=== PATIENT | female | born 1965 | race Caucasian/White ===

== ENCOUNTER → 2016-08-26 | Outpatient (CLI) | payer BC ==
--- NOTE | 2016-08-27 08:09 | XR ---
EXAMINATION TYPE: XR shoulder complete LT DATE OF EXAM: 08/26/2016 1:59 PM CLINICAL HISTORY: pain COMPARISON: NONE TECHNIQUE: Three views of the left shoulder are obtained. FINDINGS: There is no acute fracture/dislocation evident. The acromioclavicular and glenohumeral azar int spaces appear mildly narrowed. The visualized ribs are intact and unremarkable. IMPRESSION: 1. There is no acute fracture or dislocation. ICD 10 NO FRACTURE, INITIAL EVALUATION
== END | disposition home or self-care (01) ==
LOC: RADXRYALE 12:28
PROVIDERS: ATTEND Internal Medicine
DX: M25.512 Pain in left shoulder (principal)

== ENCOUNTER 2016-09-29 14:17 | Emergency (ER) | payer BC ==
[2016-09-29 14:22] VITALS: BP 129/89; PULSE 84; RESP 16; TEMP 97.7
[2016-09-29] MEDS ORDERED: HYDROcodone/APAP 5-325MG 1 EACH TAB PO STA (14:36)
--- NOTE | 2016-09-29 14:40 | ED ---
Upper Extremity HPI - General Chief Complaint: Extremity Injury, Upper Stated Complaint: Shouder Pain Time Seen by Provider: 09/29/16 14:24 Source: patient Mode of arrival: ambulatory Limitations: no limitations - History of Present Illness Initial Comments: Patient is a 51-year-old female presenting to the emergency department with complaints of left shoulder pain for approximately 6 months. Patient states she recently saw Dr. Dallas [facility] who recommended that patient undergo an MRI. Patient states she can't afford to have it done. Patient states that over the last 2 days she's had increased pain and she just can't take it anymore. Patient states that pain is exacerbated movement, pain is located primarily superior to the deltoid muscle. Patient states she is afraid to take any pain medications secondary to her having a history of a heart attack. Patient is currently refusing any imaging. No history of recent fevers, chills, nausea, vomiting, shortness of breath, chest pain, or abdominal pain. Patient denies numbness or tingling. Patient denies any recent injury or trauma. Handedness: right Severity scale (1-10): 6 Improves With: immobilization Worsens With: movement of extremity Treatments Prior to Arrival: other (None) - Related Data Home Medications Medication Instructions Recorded Confirmed Aspirin EC [Ecotrin Low Dose] 81 mg PO DAILY 01/06/16 01/06/16 Budesonide/Formoterol Fumarate 1 - 2 puff INHALATION RT-BID PRN 01/06/16 [Symbicort 160-4.5 Mcg Inhaler] Carvedilol [Coreg] 6.25 mg PO BID 01/06/16 01/06/16 Clopidogrel [Plavix] 75 mg PO DAILY 01/06/16 01/06/16 LORazepam [Lorazepam] 0.5 mg PO DAILY PRN 01/06/16 01/06/16 Nitroglycerin Sl Tabs [Nitrostat] 0.4 mg SUBLINGUAL Q5M PRN 01/06/16 01/06/16 Previous Rx's Medication Instructions Recorded Atorvastatin [Lipitor] 80 mg PO HS #90 tab 12/30/14 Furosemide [Lasix] 20 mg PO DAILY #90 tab 12/30/14 Lisinopril [Zestril] 2.5 mg PO BID #30 tab 12/31/14 HYDROcodone/APAP 5-325MG [Richmond 1 tab PO Q6H PRN #12 tab 09/29/16 5-325] Allergies Allergy/AdvReac Type Severity Reaction Status Date / Time No Known Allergies Allergy Verified 09/29/16 14:22 Review of Systems ROS Statement: Those systems with pertinent positive or pertinent negative responses have been documented in the HPI. ROS Other: All systems not noted in ROS Statement are negative. Past Medical History Past Medical History: Hyperlipidemia, Hypertension, Myocardial Infarction ([place]) Additional Past Medical History / Comment(s): Heart Murmur, V-FIB History of Any Multi-Drug Resistant Organisms: None Reported Past Surgical History: Heart Catheterization With Stent, Tonsillectomy, Tubal Ligation Additional Past Surgical History / Comment(s): . Past Anesthesia/Blood Transfusion Reactions: No Reported Reaction Additional Past Anesthesia/Blood Transfusion Reaction / Comment(s): Comes out of anesthesia quickly Past Psychological History: Anxiety, Depression Smoking Status: Current every day smoker Past Alcohol Use History: Daily Past Drug Use History: Unable to Obtain - Past Family History Mother Family Medical History: Diabetes Mellitus, Myocardial Infarction ([place]) Father Family Medical History: Diabetes Mellitus General Exam Limitations: no limitations General appearance: alert, in no apparent distress Head exam: Present: atraumatic, normocephalic, normal inspection Eye exam: Present: normal appearance, PERRL. Absent: scleral icterus, conjunctival injection, periorbital swelling, periorbital tenderness ENT exam: Present: normal exam, mucous membranes moist, normal external ear exam Neck exam: Present: normal inspection, full ROM. Absent: tenderness, meningismus, lymphadenopathy Respiratory exam: Present: normal lung sounds bilaterally. Absent: respiratory distress, wheezes, rales, rhonchi, stridor Cardiovascular Exam: Present: regular rate, normal rhythm, normal heart sounds GI/Abdominal exam: Present: soft, normal bowel sounds. Absent: distended, tenderness Left Shoulder Exam: Present: tenderness (Tenderness over the glenoid fossa.). Absent : full ROM (Patient able to abduct, adduct, flex, and extend left arm about 30. ), swelling, deformity, tenderness over AC joint Upper Arm exam: Present: normal inspection. Absent: tenderness, swelling Elbow exam: Present: normal inspection, full ROM. Absent: tenderness, swelling Forearm Wrist exam: Present: normal inspection, full ROM. Absent: tenderness, swelling Hand Wrist exam: Present: normal inspection, full ROM. Absent: tenderness, swelling Neuro motor exam: Present: wrist extension intact, thumb opposition intact, thumb IP flexion intact, thumb adduction intact, fingers 2-5 abduction intact Neurosensory exam: Present: 2-point discrimination, radial nerve intact, ulnar nerve intact, median nerve intact Vascular: Present: normal capillary refill, radial pulse, brachial pulse, ulnar pulse. Absent: vascular compromise Back exam: Present: normal inspection, full ROM. Absent: tenderness Neurological exam: Present: alert, oriented X3, normal gait, other (No focal deficits noted) Psychiatric exam: Present: normal affect, normal mood Skin exam: Present: warm, dry, intact, normal color Course Vital Signs 09/29/16 14:20 Temperature 97.7 F Pulse Rate 84 Respiratory 16 Rate Blood Pressure 129/89 O2 Sat by Pulse 97 Oximetry Medical Decision Making - Medical Decision Making Left shoulder pain over the glenoid fossa joint, chronic. Patient declined x- ray at this time. Patient given prescription for short course of pain medicine and instructed to follow-up with primary care physician and orthopedic service. Patient encouraged to get MRI done as previously directed. Patient agrees with treatment plan. Discharge instructions and return parameters reviewed. Disposition Clinical Impression: Chronic shoulder pain Disposition: HOME SELF-CARE Condition: Good Instructions: Shoulder Pain (ED) Additional Instructions: Continue Richmond one pill every 4-6 hours as needed for moderate to severe pain. Avoid alcohol or operating machinery while taking the pain medicine. Please follow-up with primary care physician as directed. Please follow-up with orthopedic service with new or worsening pain. Please return to the emergency department with any new or worsening symptoms. Prescriptions: HYDROcodone/APAP 5-325MG [Rich[place] 5-325] 1 tab PO Q6H PRN #12 tab PRN Reason: Pain Referrals: Sydney Caro MD [Primary Care Provider] - 1-2 days Dallas Jean MD [STAFF PHYSICIAN] - 1-2 days Time of Disposition: 14:41
== END 2016-09-29 15:15 | disposition home or self-care (01) ==
LOC: EC 14:17
DX: G89.29 Other chronic pain (principal); M25.512 Pain in left shoulder; I10 Essential (primary) hypertension; I25.2 Old myocardial infarction; F17.200 Nicotine dependence, unspecified, uncomplicated; Z79.02 Long term (current) use of antithrombotics/antiplatelets; Z79.82 Long term (current) use of aspirin; Z95.5 Presence of coronary angioplasty implant and graft
CPT/HCPCS: 99283

== ENCOUNTER 2017-03-21 20:16 | Emergency (ER) | payer BC ==
[2017-03-21 20:21] VITALS: RESP 18
[2017-03-21] MEDS ORDERED: KETOROLAC 30 MG/ML 1 ML VIAL IVP STA (20:38)
[2017-03-21] MEDS ORDERED: ASPIRIN 81 MG PO STA (20:38)
--- NOTE | 2017-03-21 20:42 | ED ---
Chest Pain HPI - General Chief Complaint: Chest Pain Stated Complaint: chest pain Time Seen by Provider: 03/21/17 20:28 Source: patient, RN notes reviewed Mode of arrival: ambulatory Limitations: no limitations - History of Present Illness Initial Comments: This is a 52-year-old female history of heart disease who is currently a smoker also history of COPD who states she had the onset about 8 PM yesterday evening of midsternal lower sternal chest pain. Feels like some a squeezing in its worse is 2-3/10 in severity currently is 0 a does get worse with deep breathing. She also states she's had a cough with some intermittent yellow phlegm sometimes clear phlegm she had hot flashes no chills or sweats. She does not feel short of breath. She states she's been under some stress lately she believes she may have gotten wrong prescription but it was corrected. No other complaints at this time MD Complaint: chest pain - Related Data Home Medications Medication Instructions Recorded Confirmed Aspirin EC [Ecotrin Low Dose] 81 mg PO DAILY 01/06/16 03/21/17 Carvedilol [Coreg] 6.25 mg PO BID 01/06/16 03/21/17 Clopidogrel [Plavix] 75 mg PO DAILY 01/06/16 03/21/17 Gemfibrozil [Lopid] 600 mg PO DAILY 03/21/17 03/21/17 metFORMIN HCL 1,000 mg PO BID 03/21/17 03/21/17 Previous Rx's Medication Instructions Recorded Atorvastatin [Lipitor] 80 mg PO HS #90 tab 12/30/14 Furosemide [Lasix] 20 mg PO DAILY #90 tab 12/30/14 Lisinopril [Zestril] 2.5 mg PO BID #30 tab 12/31/14 Ibuprofen [Motrin] 600 mg PO Q6HR PRN #20 tab 03/21/17 Allergies Allergy/AdvReac Type Severity Reaction Status Date / Time No Known Allergies Allergy Verified 03/21/17 20:44 Review of Systems ROS Statement: Those systems with pertinent positive or pertinent negative responses have been documented in the HPI. ROS Other: All systems not noted in ROS Statement are negative. EKG Findings - EKG Results: EKG: interpreted by RYAN, sinus rhythm (Sinus rhythm rate is 68. Interval 154 QRS 84 QT since QTC of 390/423 old septal changes. No current acute ST elevation or depressions.) Past Medical History Past Medical History: Hyperlipidemia, Hypertension, Myocardial Infarction ([place]) Additional Past Medical History / Comment(s): Heart Murmur, V-FIB History of Any Multi-Drug Resistant Organisms: None Reported Past Surgical History: Heart Catheterization With Stent, Tonsillectomy, Tubal Ligation Additional Past Surgical History / Comment(s): . Past Anesthesia/Blood Transfusion Reactions: No Reported Reaction Additional Past Anesthesia/Blood Transfusion Reaction / Comment(s): Comes out of anesthesia quickly Past Psychological History: Anxiety, Depression Smoking Status: Current every day smoker Past Alcohol Use History: Daily Past Drug Use History: None Reported - Past Family History Mother Family Medical History: Diabetes Mellitus, Myocardial Infarction ([place]) Father Family Medical History: Diabetes Mellitus General Exam - General Exam Comments Initial Comments: This is a well-developed well-nourished awake alert oriented x 3 female Limitations: no limitations General appearance: alert, anxious Head exam: Present: atraumatic, normocephalic, normal inspection Eye exam: Present: normal appearance, PERRL, EOMI. Absent: scleral icterus, conjunctival injection, periorbital swelling ENT exam: Present: normal exam, mucous membranes moist Neck exam: Present: normal inspection. Absent: tenderness, meningismus, lymphadenopathy Respiratory exam: Present: normal lung sounds bilaterally. Absent: respiratory distress, wheezes, rales, rhonchi, stridor Cardiovascular Exam: Present: regular rate, normal rhythm, normal heart sounds. Absent: systolic murmur, diastolic murmur, rubs, gallop, clicks GI/Abdominal exam: Present: soft, normal bowel sounds. Absent: distended, tenderness, guarding, rebound, rigid Extremities exam: Present: normal inspection, full ROM, normal capillary refill. Absent: tenderness, pedal edema, joint swelling, calf tenderness Back exam: Present: normal inspection Neurological exam: Present: alert, oriented X3, CN II-XII intact Psychiatric exam: Present: normal affect, normal mood Skin exam: Present: warm, dry, intact, normal color. Absent: rash Course Vital Signs 03/21/17 03/21/17 20:18 20:57 Temperature 97.5 F L Pulse Rate 77 65 Respiratory 18 18 Rate Blood Pressure 146/75 132/74 O2 Sat by Pulse 98 99 Oximetry - Reevaluation(s) Reevaluation #1: 03/21/17 22:52 I did discuss the risks of smoking and the benefits of smoking cessation with the patient. We went over the multiple diseases it could be caused by smoking. The Conversation lasting 3.1 minutes. Chest Pain MDM - MDM I did discuss the findings with the patient and her daughter was present. Thus far the workup was negative for acute findings. CAT scan is negative for PE or acute focal disease. Patient did get relief from her discomfort she will be discharged she was cautioned about smoking she'll be placed on anti- inflammatories. She is a follow-up with her doctor return when necessary Disposition Clinical Impression: Chest wall syndrome, Costalchondritis, Smoking Disposition: HOME SELF-CARE Condition: Good Instructions: Costochondritis (ED), Chest Pain (ED), How to Stop Smoking (ED) Prescriptions: Ibuprofen [Motrin] 600 mg PO Q6HR PRN #20 tab PRN Reason: Pain Referrals: Sydney Caro MD [Primary Care Provider] - 1-2 days
[2017-03-21 20:52] LABS: Basophils # (A) 0.1 k/uL (0-0.2); Basophils % (A) 1 %; CH 32.7; Eosinophils # (A) 0.3 k/uL (0-0.7); Eosinophils % (A) 3 %; HCT 47.4 % (34.0-46.0); HDW 2.34; HGB 15.9 gm/dL (11.4-16.0); Luc % (Auto) 3; Lymphocytes # (A) 2.5 k/uL (1.0-4.8); Lymphocytes % (A) 25 %; MCH 31.5 pg (25.0-35.0); MCHC 33.6 g/dL (31.0-37.0); MCV 93.8 fL (80.0-100.0); Mean Platelet Volume 7.3; Monocytes # (A) 0.6 k/uL (0-1.0); Monocytes % (A) 6 %; Neutrophils # (A) 6.1 k/uL (1.3-7.7); Neutrophils % (A) 62 %; RBC 5.05 m/uL (3.80-5.40); RDW 12.8 % (11.5-15.5); WBC 9.9 k/uL (3.8-10.6); WBC (Perox) 10.17
--- NOTE | 2017-03-21 20:55 | XR ---
EXAMINATION TYPE: XR chest 2V DATE OF EXAM: 03/21/2017 COMPARISON: 01/06/2016 HISTORY: Chest pain TECHNIQUE: Frontal and lateral views of the chest are obtained. FINDINGS: Heart and mediastinum are normal. Lungs are clear of consolidation. There is no pleural ef fusion. There are chest leads. Bony thorax appears intact. IMPRESSION: Normal chest. No change.
[2017-03-21 21:05] LABS: ALT 34 U/L (9-52); AST 28 U/L (14-36); Alkaline Phosphatase 71 U/L (38-126); Amylase 57 U/L (30-110); Anion Gap 12 mmol/L; Blood Urea Nitrogen 12 mg/dL (7-17); Calcium 10.1 mg/dL (8.4-10.2); Carbon Dioxide 26 mmol/L (22-30); Chloride 102 mmol/L (98-107); Glucose 91 mg/dL (74-99); Magnesium 2.1 mg/dL (1.6-2.3); Non-African American GFR(MDRD) >60 (>60 ml/min/1.73 sqM); Sodium 140 mmol/L (137-145); Total Bilirubin 0.5 mg/dL (0.2-1.3)
[2017-03-21 21:07] LABS: Creatine Kinase 59 U/L (30-135)
[2017-03-21 21:10] LABS: Partial Thromboplastin Time 23.6 sec (22.0-30.0); Prothrombin Time 9.9 sec (9.0-12.0)
[2017-03-21 21:19] LABS: Creatine Kinase MB 1.4 ng/mL (0.0-2.4); Troponin I <0.012 ng/mL (0.000-0.034)
[2017-03-21] MEDS ORDERED: RX INFO: IV CONTRAST WAS GIVEN 1 EACH MISC MISCELLANE PRN (21:47)
--- NOTE | 2017-03-21 22:26 | CT ---
EXAMINATION TYPE: CT angio chest DATE OF EXAM: 03/21/2017 10:16 PM COMPARISON: NONE HISTORY: Shortness of breath and chest pain CT DLP: 464 mGycm Automated exposure control for dose reduction was used. CONTRAST: CTA scan of the thorax is performed with IV Contrast, patient injected with 100 mL of Omnipaque 350, pulmonary embolism protocol. There are 3-D post processed images.. FINDINGS: There is mild reticular interstitial infiltrate at the posterior lung bases. There is no evidence of pulmonary mass. There is no pneumothorax or pleural effusion. Heart size is normal. There is no pericardial effusion. I see no filling defects in the pulmonary art eries. There is no mediastinal adenopathy. There are no hilar masses. There is no evidence of aortic aneurysm or dissection. Bony structures are intact. IMPRESSION: MILD RETICULAR DENSITY AT THE LUNG BASES CONSISTENT WITH SUBSEGMENTAL ATELECTASIS. NO EVIDENCE OF PUL MONARY EMBOLISM.
[2017-03-21 23:27] VITALS: BP 111/73; PULSE 55; TEMP 98
== END 2017-03-21 23:25 | disposition home or self-care (01) ==
LOC: EC 20:16
DX: M94.0 Chondrocostal junction syndrome [Tietze] (principal); E78.5 Hyperlipidemia, unspecified; I10 Essential (primary) hypertension; I49.01 Ventricular fibrillation; I25.2 Old myocardial infarction; F17.200 Nicotine dependence, unspecified, uncomplicated; Z95.5 Presence of coronary angioplasty implant and graft; Z79.82 Long term (current) use of aspirin; Z79.84 Long term (current) use of oral hypoglycemic drugs; Z79.01 Long term (current) use of anticoagulants; Z79.899 Other long term (current) drug therapy
CPT/HCPCS: 99285; 96374; 36415; 93005; 85379; 83880; 80053; 82150; 82550; 82553; 83690; 83735; 84484; 85025; 85610; 85730; 71020; 71275; Q9967; J1885

== ENCOUNTER 2017-10-25 18:21 | Emergency (ER) | payer BC, OTHER ==
[2017-10-25 18:50] VITALS: BP 113/55; PULSE 74; RESP 16; TEMP 97.8
[2017-10-25] MEDS ORDERED: DIPH,PERTUS(ACELL)TETVAC-LF 0.5 ML VIAL IM ONE (19:23)
--- NOTE | 2017-10-25 19:30 | ED ---
General Adult HPI - General Chief complaint: Animal Bite Stated complaint: DOG BITE LEFT ARM Time Seen by Provider: 10/25/17 19:19 Source: patient, RN notes reviewed Mode of arrival: ambulatory Limitations: no limitations - History of Present Illness Initial comments: Patient 52-year-old female presenting to the emergency room today with chief complaint of dog bite to the left elbow that occurred just prior to arrival. She states it was her daughter's dog. She states that she was going to let off for work and the dog became upset and bit her on the left elbow. Patient is unsure of her tetanus status. She states she does have full range of motion. She denies any other complaints or symptoms at this time. Patient denies any recent fever, chills, shortness of breath, chest pain, back pain, abdominal pain , nausea or vomiting, numbness or tingling, headaches or visual changes, or any other complaints. - Related Data Home Medications Medication Instructions Recorded Confirmed Aspirin EC [Ecotrin Low Dose] 81 mg PO DAILY 01/06/16 03/21/17 Carvedilol [Coreg] 6.25 mg PO BID 01/06/16 03/21/17 Clopidogrel [Plavix] 75 mg PO DAILY 01/06/16 03/21/17 Gemfibrozil [Lopid] 600 mg PO DAILY 03/21/17 03/21/17 metFORMIN HCL 1,000 mg PO BID 03/21/17 03/21/17 Previous Rx's Medication Instructions Recorded Atorvastatin [Lipitor] 80 mg PO HS #90 tab 12/30/14 Furosemide [Lasix] 20 mg PO DAILY #90 tab 12/30/14 Lisinopril [Zestril] 2.5 mg PO BID #30 tab 12/31/14 Ibuprofen [Motrin] 600 mg PO Q6HR PRN #20 tab 03/21/17 Amoxicillin/Potassium Clav 1 each PO Q12HR #20 tab 10/25/17 [Augmentin 875-125 Tablet] Allergies Allergy/AdvReac Type Severity Reaction Status Date / Time No Known Allergies Allergy Verified 10/25/17 18:50 Review of Systems ROS Statement: Those systems with pertinent positive or pertinent negative responses have been documented in the HPI. ROS Other: All systems not noted in ROS Statement are negative. Past Medical History Past Medical History: Hyperlipidemia, Hypertension, Myocardial Infarction ([place]) Additional Past Medical History / Comment(s): Heart Murmur, V-FIB History of Any Multi-Drug Resistant Organisms: None Reported Past Surgical History: Heart Catheterization With Stent, Tonsillectomy, Tubal Ligation Additional Past Surgical History / Comment(s): . Past Anesthesia/Blood Transfusion Reactions: No Reported Reaction Additional Past Anesthesia/Blood Transfusion Reaction / Comment(s): Comes out of anesthesia quickly Past Psychological History: Anxiety, Depression Smoking Status: Current every day smoker Past Alcohol Use History: Daily Past Drug Use History: None Reported - Past Family History Mother Family Medical History: Diabetes Mellitus, Myocardial Infarction ([place]) Father Family Medical History: Diabetes Mellitus General Exam - General Exam Comments Initial Comments: General: The patient is awake and alert, in no distress, and does not appear acutely ill. Neck: The neck is supple, there is no tenderness or JVD. Musculoskeletal: Moderate swelling to the medial aspect of the right elbow. Patient shows full range of motion with flexion and extension. Radial pulse 2+ . Strength is 5/5. Sensations intact. Neurological: A&O x 3. CN II-XII intact, There are no obvious motor or sensory deficits. Coordination appears grossly intact. Speech is normal. Skin: Patient does have puncture wound to the medial aspect measures approximately 1 cm with 2 small punctures to the posterior aspect measuring each approximately half centimeter in size. No active bleeding. Psychiatric: Normal mood and affect. Limitations: no limitations Course Vital Signs 10/25/17 18:48 Temperature 97.8 F Pulse Rate 74 Respiratory 16 Rate Blood Pressure 113/55 O2 Sat by Pulse 96 Oximetry Medical Decision Making - Medical Decision Making X-ray reviewed and is negative for any foreign bodies or fracture dislocation. Results were discussed with the patient. Patient tetanus updated here in the emergency room be started on antibiotics. Advised close follow-up for signs of infection Disposition Clinical Impression: Dog bite Disposition: HOME SELF-CARE Instructions: Animal Bite (ED) Additional Instructions: Please use medication as discussed. Please follow-up with family doctor in the next 2 days of symptoms have not improved. Please return to emergency room if the symptoms increase or worsen or for any other concerns. Prescriptions: Amoxicillin/Potassium Clav [Augmentin 875-125 Tablet] 1 each PO Q12HR #20 tab Is patient prescribed a controlled substance at d/c from ED?: No Referrals: Sydney Caro MD [Primary Care Provider] - 1-2 days Time of Disposition: 19:55
--- NOTE | 2017-10-25 19:51 | XR ---
EXAMINATION TYPE: XR elbow complete LT DATE OF EXAM: 10/25/2017 CLINICAL HISTORY: Dogbite and soft tissue swelling TECHNIQUE: Frontal, lateral and oblique images of the left elbow are obtained. COMPARISON: None FINDINGS: There is no acute fracture/dislocation evident in the left elbow. No abnormal fat pad sig ns are seen. There is extensive soft tissue swelling over the ventral and dorsal distal humerus seen medially. No cortical erosion or periosteal reaction. No suspicious radiopaque foreign body. IMPRESSION: Pronounced soft tissue swelling of the medial elbow also seen dorsally and ventrally over the distal humerus without is no acute fracture or dislocation in the left elbow. No cortical erosio n or periosteal reaction to suggest current osteomyelitis.
== END 2017-10-25 20:19 | disposition home or self-care (01) ==
LOC: EC 18:21
DX: S51.052A Open bite, left elbow, initial encounter (principal); E78.5 Hyperlipidemia, unspecified; I25.2 Old myocardial infarction; I10 Essential (primary) hypertension; I49.01 Ventricular fibrillation; F17.200 Nicotine dependence, unspecified, uncomplicated; Z95.5 Presence of coronary angioplasty implant and graft; Z79.82 Long term (current) use of aspirin; Z79.84 Long term (current) use of oral hypoglycemic drugs; Z79.02 Long term (current) use of antithrombotics/antiplatelets; Z79.899 Other long term (current) drug therapy; Z23 Encounter for immunization; W54.0XXA Bitten by dog, initial encounter
CPT/HCPCS: 90471; 90715; 99283

== ENCOUNTER → 2018-02-26 | Outpatient (CLI) | payer OTHER ==
--- NOTE | 2018-02-26 15:29 | MR ---
EXAMINATION TYPE: MR shoulder RT wo con DATE OF EXAM: 02/26/2018 COMPARISON: Outside right shoulder x-ray from 2 days ago. HISTORY: Pain in right shoulder per order. Pain since May 2017 with difficulty raising overhead TECHNIQUE: Multiplanar, multisequence imaging of the right shoulder is performed without contrast. FINDINGS: Rotator Cuff: Increased signal distal supraspinatus tendon is present. Tiny articular surface tear is identified paracoronal image 15 measuring 4 mm transversely . Infraspinatus tendon is intact. Subsca pularis tendon is intact. Rotator cuff muscle bulk is preserved. Acromioclavicular Joint: There is mild to moderate joint space loss and capsular hypertrophy with mil d spurring. Inferior fat plane is effaced. Distal acromion morphology is unremarkable. Glenohumeral Joint: There is small to moderate glenohumeral joint effusion. No significant spurring i s seen. Labrum: The labrum appears grossly intact given limitation of non-arthrogram study. Biceps Tendon: The long head of biceps is in normal location within bicipital groove. Bone marrow signal: Heterogeneity consistent with red marrow reconversion is present. Other: No additional significant abnormality is appreciated. IMPRESSION: Tendinosis and partial articular surface tear of distal supraspinatus tendon.
== END | disposition home or self-care (01) ==
LOC: RADMRIMAIN 10:57
PROVIDERS: ATTEND Orthopaedic Surgery
DX: M75.101 Unspecified rotator cuff tear or rupture of right shoulder, not specified as traumatic (principal); M75.91 Shoulder lesion, unspecified, right shoulder

== ENCOUNTER → 2018-09-08 | Outpatient (CLI) | payer OTHER ==
--- NOTE | 2018-09-08 13:33 | XR ---
EXAM TYPE: LUMBAR SPINE X RAY SERIES COMPARISON: NONE HISTORY: Pain TECHNIQUE: 4 views are submitted. FINDINGS: Alignment is anatomic. The pedicles are intact. The transverse processes are intact. There is no s pondylolysis or spondylolisthesis. Multilevel hypertrophic changes are seen with facet arthropathy a t L5-S1. No compression deformities. IMPRESSION: 1. Multilevel hypertrophic changes. Correlate with MRI as clinically warranted. Facet arthropathy L5- S1..
== END | disposition home or self-care (01) ==
LOC: RADXRMAIN 11:04
PROVIDERS: ATTEND Family Medicine
DX: M46.97 Unspecified inflammatory spondylopathy, lumbosacral region (principal)
CPT/HCPCS: 72110

== ENCOUNTER → 2018-12-28 | Outpatient (CLI) | payer OTHER ==
--- NOTE | 2018-12-29 10:26 | MM ---
Reason for exam: screening (asymptomatic). Last mammogram was performed 3 years and 3 months ago. History: Patient is postmenopausal. Benign US biopsy breast VAD RT of the right breast, September 19, 2015. Physical Findings: A clinical breast exam by your physician is recommended on an annual basis and results should be correlated with mammographic findings. MG Screening Mammo w CAD Bilateral CC and MLO view(s) were taken. Prior study comparison: September 19, 2015, right breast MG diagnostic mammo RT wo CAD. The breast tissue is heterogeneously dense. This may lower the sensitivity of mammography. There is a stable right upper outer quadrant mass at middle depth. Benign appearing calcifications in the right breast. No suspicious abnormality. Right biopsy marker noted. No significant changes when compared with prior studies. ASSESSMENT: Benign, BI-RAD 2 RECOMMENDATION: Routine screening mammogram of both breasts in 1 year.
== END | disposition home or self-care (01) ==
LOC: RADMAMWWP 14:32
PROVIDERS: ATTEND Internal Medicine
DX: Z12.31 Encounter for screening mammogram for malignant neoplasm of breast (principal)
CPT/HCPCS: 77067

== ENCOUNTER 2023-09-16 16:21 | Emergency (ER) | payer OTHER ==
[2023-09-16 16:36] VITALS: TEMP 98.2
--- NOTE | 2023-09-16 16:57 | ED ---
Dizziness HPI - General Chief Complaint: Syncope Stated Complaint: Syncope Time Seen by Provider: 09/16/23 16:29 Source: patient, EMS, RN notes reviewed, old records reviewed Mode of arrival: EMS Limitations: no limitations - History of Present Illness Initial Comments: This is a 58-year-old female with history of syncope. Patient states she was at home when she had a syncopal event she did does believe she hit her face on a dog dish. Patient is concerned over possible causes of syncope here in the emergency department she has been passing out more than usual lately possible blood sugar issues. Patient has no headache chest pain shortness of breath abdominal pain currently but is on Plavix and did hit her head. Patient again has prior history of syncope MD Complaint: dizziness, lightheadedness, other (Positive syncopal event) -: hour(s) Timing: sudden onset, gradual onset Description: lightheadedness, other (No external signs of trauma) History of Same: Yes History of Trauma: Yes (No significant traumatic injury noted to the face or neck) Severity: moderate Worsens With: nothing Associated Symptoms: shortness of breath, syncope, weakness - Related Data Home Medications Medication Instructions Recorded Confirmed Aspirin EC [Ecotrin Low Dose] 81 mg PO DAILY@1200 01/06/16 09/16/23 carvediloL [Coreg] 6.25 mg PO BID@0000,1200 01/06/16 09/16/23 gemfibroziL [Lopid] 600 mg PO DAILY@1200 03/21/17 09/16/23 metFORMIN HCL [Glucophage] 1,000 mg PO DAILY@1200 03/21/17 09/16/23 lisinopriL [Zestril] 2.5 mg PO BID@0000,1200 05/11/18 09/16/23 Atorvastatin [Lipitor] 80 mg PO HS@0000 09/16/23 09/16/23 Furosemide [Lasix] 20 mg PO DAILY@1200 09/16/23 09/16/23 Allergies Allergy/AdvReac Type Severity Reaction Status Date / Time No Known Allergies Allergy Verified 09/16/23 17:27 Review of Systems ROS Statement: Those systems with pertinent positive or pertinent negative responses have been documented in the HPI. ROS Other: All systems not noted in ROS Statement are negative. Past Medical History Past Medical History: Hyperlipidemia, Hypertension, Myocardial Infarction (ND) Additional Past Medical History / Comment(s): Heart Murmur, V-FIB History of Any Multi-Drug Resistant Organisms: None Reported Past Surgical History: Heart Catheterization With Stent, Tonsillectomy, Tubal Ligation Additional Past Surgical History / Comment(s): . Past Anesthesia/Blood Transfusion Reactions: No Reported Reaction Additional Past Anesthesia/Blood Transfusion Reaction / Comment(s): Comes out of anesthesia quickly Past Psychological History: Anxiety, Depression Smoking Status: Current every day smoker Past Alcohol Use History: Daily Past Drug Use History: None Reported - Past Family History Mother Family Medical History: Diabetes Mellitus, Myocardial Infarction (ND) Father Family Medical History: Diabetes Mellitus General Exam Limitations: no limitations General appearance: alert, in no apparent distress, anxious Head exam: Present: atraumatic, normocephalic, normal inspection Eye exam: Present: normal appearance, PERRL, EOMI. Absent: scleral icterus, conjunctival injection, periorbital swelling ENT exam: Present: normal exam, mucous membranes moist Neck exam: Present: normal inspection. Absent: tenderness, meningismus, lymphadenopathy Respiratory exam: Present: normal lung sounds bilaterally. Absent: respiratory distress, wheezes, rales, rhonchi, stridor Cardiovascular Exam: Present: regular rate, normal rhythm, normal heart sounds. Absent: systolic murmur, diastolic murmur, rubs, gallop, clicks GI/Abdominal exam: Present: soft, normal bowel sounds. Absent: distended, tenderness, guarding, rebound, rigid Extremities exam: Present: normal inspection, full ROM, normal capillary refill. Absent: tenderness, pedal edema, joint swelling, calf tenderness Back exam: Present: normal inspection Neurological exam: Present: alert, oriented X3, CN II-XII intact Psychiatric exam: Present: normal affect, normal mood Skin exam: Present: warm, dry, intact, normal color. Absent: rash Course Vital Signs 09/16/23 09/16/23 09/16/23 16:28 18:53 21:02 Temperature 98.2 F Pulse Rate 79 94 80 Respiratory 18 18 18 Rate Blood Pressure 152/81 105/95 148/81 O2 Sat by Pulse 95 97 97 Oximetry 09/16/23 21:32 Temperature Pulse Rate Respiratory 16 Rate Blood Pressure O2 Sat by Pulse Oximetry - Reevaluation(s) Reevaluation #1: Medical records reviewed Reevaluation #2: Patient symptoms unchanged Reevaluation #3: Patient informed of results and questions answered Reevaluation #4: Was pt. sent in by a medical professional or institution (ARCHIE Campbell, [employer]AIGHTENER, urgent care, hospital, or group home...) When possible be specific @ -no Did you speak to anyone other than the patient for history (EMS, parent, family, police, friend...)? What history was obtained from this source @ -no Did you review nursing and triage notes (agree or disagree)? Why? @ -agree Are old charts reviewed (outside hosp., previous admission, EMS record, old EKG, old radiological studies, urgent care reports/EKG's, group home records)? Report findings @ -yes Differential Diagnosis (chest pain, altered mental status, abdominal pain women, abdominal pain men, vaginal bleeding, weakness, fever, dyspnea, syncope, headache, dizziness, GI bleed, back pain, seizure, CVA, palpatations, mental health, musculoskeletal)? @ -prior EKG interpreted by me (3pts min.). @ -yes X-rays interpreted by me (1pt min.). @ -no CT interpreted by me (1pt min.). @ -yes negative for acute disease U/S interpreted by me (1pt. min.). @ -no What testing was considered but not performed or refused? (CT, X-rays, U/S, labs)? Why? @ -none What meds were considered but not given or refused? Why? @ -none Did you discuss the management of the patient with other professionals (professionals i.e. ARCHIE Campbell, [employer] STRAIGHTENER, lab, RT, psych nurse, social media community manager, trial lawyer, teacher, investment officer, case management coordinator)? Give summary @ -no Was smoking cessation discussed for >3mins.? @ -no Was critical care preformed (if so, how long)? @ -no Were there social determinants of health that impacted care today? How? (Homelessness, low income, unemployed, alcoholism, drug addiction, transportation, low edu. Level, literacy, decrease access to med. care, fdc, r ehab)? @ -none Was there de-escalation of care discussed even if they declined (Discuss DNR or withdrawal of care, Hospice)? DNR status @ -no What co-morbidities impacted this encounter? (DM, HTN, Smoking, COPD, CAD, Cancer, CVA, ARF, Chemo, Hep., AIDS, mental health diagnosis, sleep apnea, morbid obesity)? @ -none Was patient admitted / discharged? Hospital course, mention meds given and route , prescriptions, significant lab abnormalities, going to OR and other pertinent info. @ - 58 female to ER with a syncopal event but no acute cause of syncope found here in the ER, patient has no complaints of headache chest pain shortness of breath abdominal pain has no other complaints or feelings. Patient can be discharged home Discharge Undiagnosed new problem with uncertain prognosis? @ -no Drug Therapy requiring intensive monitoring for toxicity (Heparin, Nitro, Insulin, Cardizem)? @ -no Were any procedures done? @ -no Diagnosis/symptom? @ -Syncope Acute, or Chronic, or Acute on Chronic? @ -Acute Uncomplicated (without systemic symptoms) or Complicated (systemic symptoms)? @ -Complicated Side effects of treatment? @ -no Exacerbation, Progression, or Severe Exacerbation? @ -exacerbation Poses a threat to life or bodily function? How? (Chest pain, USA, ND, pneumonia, PE, COPD, DKA, ARF, appy, cholecystitis, CVA, Diverticulitis, Homicidal, Suicidal, threat to staff... and all critical care pts) @ -yes with cause of syncope Reevaluation #5: Differential Dizziness: Benign paroxysmal positional Vertigo, Menieres disease, otitis media, acoustic neuroma, vertebrobasilar insufficiency, cerebellar stroke, encephalitis, hypovolemic, arrhythmia, coronary artery syndrome, anemia, this is not meant to be an all-inclusive list EKG Findings - EKG Comments: EKG Findings:: EKG is sinus 67 UT 160 QRS 88 QTc 407 - EKG Results: EKG: interpreted by [facility] Medical Decision Making - Medical Decision Making 58 female to ER with a syncopal event but no acute cause of syncope found here in the ER, patient has no complaints of headache chest pain shortness of breath abdominal pain has no other complaints or feelings. Patient can be discharged home - Lab Data Result diagrams: 09/16/23 17:05 09/16/23 17:05 Lab Results 09/16/23 09/16/23 09/16/23 Range/Units 17:05 17:05 17:05 WBC 6.8 (3.8-10.6) k/uL RBC 4.70 (3.80-5.40) m/uL Hgb 15.3 (11.4-16.0) gm/dL Hct 45.1 (34.0-46.0) % MCV 95.9 (80.0-100.0) fL MCH 32.5 (25.0-35.0) pg MCHC 33.9 (31.0-37.0) g/dL RDW 12.7 (11.5-15.5) % Plt Count 311 (150-450) k/uL MPV 7.4 Neutrophils % 62 % Lymphocytes % 23 % Monocytes % 8 % Eosinophils % 2 % Basophils % 1 % Neutrophils # 4.2 (1.3-7.7) k/uL Lymphocytes # 1.6 (1.0-4.8) k/uL Monocytes # 0.6 (0-1.0) k/uL Eosinophils # 0.1 (0-0.7) k/uL Basophils # 0.1 (0-0.2) k/uL PT 10.7 (10.0-12.5) sec INR 1.0 (<1.2) APTT 24.9 (22.0-30.0) sec D-Dimer 2.12 H (<0.60) mg/L FEU Sodium 131 L (137-145) mmol/L Potassium 4.3 (3.5-5.1) mmol/L Chloride 96 L (98-107) mmol/L Carbon Dioxide 26 (22-30) mmol/L Anion Gap 9 mmol/L BUN 7 (7-17) mg/dL Creatinine 0.52 (0.52-1.04) mg/dL Est GFR (CKD-EPI)AfAm >90 (>60 ml/min/1.73 sqM) Est GFR (CKD-EPI)NonAf >90 (>60 ml/min/1.73 sqM) Glucose 99 (74-99) mg/dL Plasma Lactic Acid Jose D (0.7-2.0) mmol/L Calcium 9.9 (8.4-10.2) mg/dL Phosphorus 4.2 (2.5-4.5) mg/dL Magnesium 1.7 (1.6-2.3) mg/dL Total Bilirubin 0.7 (0.2-1.3) mg/dL AST 30 (14-36) U/L ALT 29 (4-34) U/L Alkaline Phosphatase 67 (38-126) U/L Ammonia (<30) umol/L Troponin I (0.000-0.034) ng/mL NT-Pro-B Natriuret Pep 205 pg/mL Total Protein 7.3 (6.3-8.2) g/dL Albumin 4.9 (3.5-5.0) g/dL Urine Color Urine Appearance (Clear) Urine pH (5.0-8.0) Ur Specific [place] (1.001-1.035) Urine Protein (Negative) Urine Glucose (UA) (Negative) Urine Ketones (Negative) Urine Blood (Negative) Urine Nitrite (Negative) Urine Bilirubin (Negative) Urine Urobilinogen (<2.0) mg/dL Ur Leukocyte Esterase (Negative) Urine RBC (0-5) /hpf Urine WBC (0-5) /hpf Ur Squamous Epith Cells (0-4) /hpf Hyaline Casts (0-2) /lpf Urine Mucus (None) /hpf Serum Alcohol <10 mg/dL 09/16/23 09/16/23 09/16/23 Range/Units 17:05 17:05 17:05 WBC (3.8-10.6) k/uL RBC (3.80-5.40) m/uL Hgb (11.4-16.0) gm/dL Hct (34.0-46.0) % MCV (80.0-100.0) fL MCH (25.0-35.0) pg MCHC (31.0-37.0) g/dL RDW (11.5-15.5) % Plt Count (150-450) k/uL MPV Neutrophils % % Lymphocytes % % Monocytes % % Eosinophils % % Basophils % % Neutrophils # (1.3-7.7) k/uL Lymphocytes # (1.0-4.8) k/uL Monocytes # (0-1.0) k/uL Eosinophils # (0-0.7) k/uL Basophils # (0-0.2) k/uL PT (10.0-12.5) sec INR (<1.2) APTT (22.0-30.0) sec D-Dimer (<0.60) mg/L FEU Sodium (137-145) mmol/L Potassium (3.5-5.1) mmol/L Chloride (98-107) mmol/L Carbon Dioxide (22-30) mmol/L Anion Gap mmol/L BUN (7-17) mg/dL Creatinine (0.52-1.04) mg/dL Est GFR (CKD-EPI)AfAm (>60 ml/min/1.73 sqM) Est GFR (CKD-EPI)NonAf (>60 ml/min/1.73 sqM) Glucose (74-99) mg/dL Plasma Lactic Acid Jose D 1.4 (0.7-2.0) mmol/L Calcium (8.4-10.2) mg/dL Phosphorus (2.5-4.5) mg/dL Magnesium (1.6-2.3) mg/dL Total Bilirubin (0.2-1.3) mg/dL AST (14-36) U/L ALT (4-34) U/L Alkaline Phosphatase (38-126) U/L Ammonia <9 (<30) umol/L Troponin I <0.012 (0.000-0.034) ng/mL NT-Pro-B Natriuret Pep pg/mL Total Protein (6.3-8.2) g/dL Albumin (3.5-5.0) g/dL Urine Color Colorless Urine Appearance Clear (Clear) Urine pH 6.0 (5.0-8.0) Ur Specific [place] 1.006 (1.001-1.035) Urine Protein Negative (Negative) Urine Glucose (UA) Negative (Negative) Urine Ketones Negative (Negative) Urine Blood Negative (Negative) Urine Nitrite Negative (Negative) Urine Bilirubin Negative (Negative) Urine Urobilinogen <2.0 (<2.0) mg/dL Ur Leukocyte Esterase Moderate H (Negative) Urine RBC 3 (0-5) /hpf Urine WBC 1 (0-5) /hpf Ur Squamous Epith Cells 1 (0-4) /hpf Hyaline Casts 1 (0-2) /lpf Urine Mucus Rare H (None) /hpf Serum Alcohol mg/dL - Radiology Data Radiology results: report reviewed (CTA chest negative for acute disease), image reviewed Disposition Clinical Impression: Atypical syncope, Vasovagal syncope Disposition: HOME SELF-CARE Condition: Good Instructions (If sedation given, give patient instructions): Syncope (ED) Is patient prescribed a controlled substance at d/c from ED?: No Referrals: Sydney Caro MD [Primary Care Provider] - 1-2 days
[2023-09-16] MEDS: SODIUM CHLORIDE 0.9% 1,000 ML IV STA (17:11)
[2023-09-16] MEDS: SODIUM CHLORIDE 0.9% 500 ML 500 ML IV STA (17:12)
[2023-09-16 17:20] LABS: Basophils # (A) 0.1 k/uL (0-0.2); Basophils % (A) 1 %; Eosinophils # (A) 0.1 k/uL (0-0.7); Eosinophils % (A) 2 %; HCT 45.1 % (34.0-46.0); HGB 15.3 gm/dL (11.4-16.0); Lymphocytes # (A) 1.6 k/uL (1.0-4.8); Lymphocytes % (A) 23 %; MCH 32.5 pg (25.0-35.0); MCHC 33.9 g/dL (31.0-37.0); MCV 95.9 fL (80.0-100.0); Mean Platelet Volume 7.4; Monocytes # (A) 0.6 k/uL (0-1.0); Monocytes % (A) 8 %; Neutrophils # (A) 4.2 k/uL (1.3-7.7); Neutrophils % (A) 62 %; Platelet Count 311 k/uL (150-450); RDW 12.7 % (11.5-15.5); WBC 6.8 k/uL (3.8-10.6)
[2023-09-16 17:28] LABS: Appearance,Urine Clear (Clear); Bilirubin,Urine Negative (Negative); Blood,Urine Negative (Negative); Color,Urine Colorless; Glucose,Urine (UA) Negative (Negative); Hyaline Casts,Urine 1 /lpf (0-2); Ketones,Urine Negative (Negative); Leukocyte Esterase,Urine Moderate (Negative); Mucus,Urine Rare /hpf; Nitrite,Urine Negative (Negative); Protein,Urine Negative (Negative); RBC,Urine 3 /hpf (0-5); Specific Gravity,Urine 1.006 (1.001-1.035); Squamous Epithelial Cell,Urine 1 /hpf (0-4); Urobilinogen,Urine <2.0 mg/dL (<2.0); WBC,Urine 1 /hpf (0-5)
[2023-09-16 17:32] LABS: Lactic Acid, Venous 1.4 mmol/L (0.7-2.0)
[2023-09-16 17:37] LABS: ALT 29 U/L (4-34); African American GFR (CKD) >90 (>60 ml/min/1.73 sqM); Albumin 4.9 g/dL (3.5-5.0); Alcohol <10 mg/dL; Anion Gap 9 mmol/L; Blood Urea Nitrogen 7 mg/dL (7-17); Calcium 9.9 mg/dL (8.4-10.2); Carbon Dioxide 26 mmol/L (22-30); Chloride 96 mmol/L (98-107); Glucose 99 mg/dL (74-99); Non-African American GFR(CKD) >90 (>60 ml/min/1.73 sqM); Sodium 131 mmol/L (137-145); Total Bilirubin 0.7 mg/dL (0.2-1.3); Total Protein 7.3 g/dL (6.3-8.2)
[2023-09-16 17:38] LABS: Prothrombin Time 10.7 sec (10.0-12.5)
[2023-09-16 17:39] LABS: Partial Thromboplastin Time 24.9 sec (22.0-30.0)
[2023-09-16 17:43] LABS: NT-Pro-B-Type Natriuretic Pept 205 pg/mL
[2023-09-16 18:00] LABS: AST 30 U/L (14-36); Potassium 4.3 mmol/L (3.5-5.1)
[2023-09-16 18:01] LABS: Alkaline Phosphatase 67 U/L (38-126); Magnesium 1.7 mg/dL (1.6-2.3); Phosphorus 4.2 mg/dL (2.5-4.5)
--- NOTE | 2023-09-16 21:02 | CT ---
EXAMINATION TYPE: CT angio chest CT DLP: 273.6 mGycm, Automated exposure control for dose reduction was used. DATE OF EXAM: 09/16/2023 6:56 PM COMPARISON: Remote CT Angio chest 03/21/2017 CLINICAL INDICATION:Female, 58 years old with history of pe; SOB, tobacco dependence TECHNIQUE/CONTRAST: CTA scan of the thorax is performed with IV Contrast, patient injected with 100ml mL of Isovue 370, M IP images are created and reviewed these are created on a separate workstation.. FINDINGS: There is adequate contrast bolus and timing. PULMONARY ARTERIES: There is no evidence for a filling defect within the pulmonary vasculature to sug gest acute pulmonary embolism. Pulmonary trunk is normal in size. Trunk measures 2.1 CM. AORTA: Moderate atherosclerotic calcifications of the aorta and branches. Ascending aorta is 2.7 CM, descending is 2.3 CM. No evidence of dissection. HEART: Normal heart size.Moderate coronary artery calcification and/or stents. No appreciable perica rdial effusion. LOWER NECK: No significant findings. MEDIASTINUM: No enlarged nodes by CT size criteria. SOFT TISSUES/AXILLA: Unremarkable soft tissues. No axillary adenopathy. LUNGS/ PLEURA: No acute consolidation, pleural effusion, or pneumothorax. Mild upper lobe predominant pulmonary edematous changes. Minimal bibasilar stranding suggesting subsegmental atelectasis. In the left upper lobe there is a macrolobulated solid noncalcified nodule on image 65 measuring 5 mm, unch anged from the remote prior 2017 and consistent with benignity. AIRWAY: Central airways are patent. MUSCULOSKELETAL: Mild to moderate degenerative changes of the dorsal spine. No clearly acute bony abn ormality. UPPER ABDOMEN: Moderate mixed atherosclerotic disease of the upper abdominal aorta with mild narrowin g of the origins of the celiac and superior mesenteric arteries. Renal arteries are patent, with mild stenosis suggested bilaterally. Partially seen infrarenal fusiform AAA measuring up to at least 4.2 x 4.2 cm, however could be larger as this is not entirely imaged. Otherwise no acute abnormality is s een in the upper abdomen. Thickening and nodularity of the adrenals likely adenomatoid changes. IMPRESSION: 1. No evidence of pulmonary embolism. 2. No other acute chest process demonstrated. 3. Mild pulmonary emphysematous changes. 4. Stable 5 mm left lung nodule since 2017, considered benign. No additional workup/follow-up is requ ired or recommended. 5. Partially imaged infrarenal fusiform AAA measuring at least 4.2 cm. Abdominal CTA as an outpatient could further evaluate.
[2023-09-16 21:23] VITALS: BP 148/81; PULSE 80
[2023-09-16 22:14] VITALS: RESP 16
== END 2023-09-16 21:33 | disposition home or self-care (01) ==
LOC: EC 16:21
DX: R55 Syncope and collapse (principal); F17.200 Nicotine dependence, unspecified, uncomplicated
CPT/HCPCS: 36415; 93005; 85379; 83880; 80053; 82140; 83605; 83735; 84100; 84484; 85025; 85610; 85730; 81001; 71275; 99285; 96360; G0480; Q9967; 80320